=== PATIENT | female | born 1955 | race Caucasian/White ===

== ENCOUNTER 2019-08-23 05:50 | Day surgery (SDC) | payer OTHER ==
[~2019-08-23 05:50] MED LIST: CARAFATE1 GM/10 ML PO; DEXILANT60 MG PO; LYRICA CR330 MG PO; PEPCID40 MG PO
[2019-08-23] MEDS ORDERED: PEPCID AC20 MG PO (10:06)
[2019-08-23] MEDS ORDERED: PERCOCET 5-3251 EACH PO (10:06)
[2019-08-23] MEDS ORDERED: ZOFRAN8 MG PO (10:07)
== END 2019-08-23 13:10 | disposition home or self-care (01) ==
LOC: CIR.AMB 05:50
DX: K80.10 Calculus of gallbladder with chronic cholecystitis without obstruction (principal)